=== PATIENT | male | born 1945 | race Caucasian/White ===

== ENCOUNTER → 2023-11-18 09:48 | Outpatient (REF) | payer MEDICARE, SELFPAY ==
[2023-11-18 12:29] LABS: % Basophils 0.6 % (0-2); % Eosinophils 3.8 % (0-6); % Immature Granulocytes 0.2 % (0-0.5); % Lymphocytes 19.5 % (20.5-51.1); % Monocytes 9.8 % (1.7-9.3); % Neutrophils 66.1 % (42.2-75.2); Absolute Basophils 0.1 10^3/uL (0-0.2); Absolute Eosinophils 0.3 10^3/uL (0-0.7); Absolute Lymphocytes 1.6 10^3/uL (1.2-3.4); Absolute Monocytes 0.8 10^3/uL (0.1-0.6); Absolute Neutrophils 5.4 10^3/uL (1.4-6.5); Hematocrit 44.2 % (39.0-52.0); Hemoglobin 14.7 g/dL (13.0-18.0); Mean Corp Hgb Conc. 33.3 g/dL (33.0-37.0); Mean Corpuscular Hgb 31.1 pg (27.0-31.0); Mean Corpuscular Volume 93.4 fL (80.0-94.0); Mean Platelet Volume 10.5 fL (7.4-10.4); Nucleated Red Blood Cells % 0 % (-); Platelet Count 221 10^3/uL (130-400); Red Blood Cell Count 4.73 10^6/uL (4.70-6.10); Red Cell Dist. Width 12.7 % (11.5-14.5); White Blood Cell Count 8.2 10^3/uL (4.8-10.8)
[2023-11-18 12:51] LABS: Blood Urea Nitrogen 14 mg/dl (9-20); Calcium 9.2 mg/dl (8.4-10.2); Carbon Dioxide 30 mmol/L (22-30); Chloride 97 mmol/L (98-107); Glucose 91 mg/dl (70-99); Potassium 4.1 mmol/L (3.5-5.1); Sodium 134 mmol/L (135-145); eGFR > 60.00
== END ==
LOC: HWLAB 09:48
PROVIDERS: ATTENDING PHYSICIAN Specialist; FAMILY PHYSICIAN Family Medicine
DX: Z01.818 Encounter for other preprocedural examination (principal)
CPT/HCPCS: 36415; 80048; 85025

== ENCOUNTER 2023-12-10 06:13 | Day surgery (SDC) | payer MEDICARE, SELFPAY ==
[2023-12-10] VITALS (9 sets, daily range): BP systolic 107–137; BP diastolic 57–83; BMI 43.5
[2023-12-10] MEDS: TYLENOL 1000 MG PO (08:15)
[2023-12-10] MEDS: CELEBREX 200 MG PO (08:15)
[2023-12-10] MEDS: NORMOSOL-R 1000 IV (08:16)
--- NOTE | 2023-12-10 10:57 | SUR.PHASEI ---
patient in pacu post op, history of OBEY and CPAP use. resting sats 89- 95% on room air. patient is comfortable able to bring sats up on own, Patient knows to wear CPAP with any rest periods at home. Dr Godoy updated, okay for discharge to [facility] and
agrees - patient to use CPAP at home with any rest periods.
== END 2023-12-10 11:24 | disposition home or self-care (01) ==
LOC: SDS 06:13
PROVIDERS: ATTENDING PHYSICIAN Specialist
DX: S83.242A Other tear of medial meniscus, current injury, left knee, initial encounter (principal); S83.282A Other tear of lateral meniscus, current injury, left knee, initial encounter; X58.XXXA Exposure to other specified factors, initial encounter
CPT/HCPCS: 29880

== ENCOUNTER → 2024-05-25 10:29 | Outpatient (REF) | payer MEDICARE, SELFPAY | LOC: HWRAD 10:29 | PROVIDERS: ATTENDING PHYSICIAN Internal Medicine Cardiovascular Disease; FAMILY PHYSICIAN Nurse Practitioner Family | DX: I77.810 Thoracic aortic ectasia (principal) | CPT/HCPCS: 71250 ==

== ENCOUNTER → 2025-05-15 12:44 | Outpatient (REF) | payer MEDICARE, SELFPAY | LOC: DHSLP 12:44 | PROVIDERS: ATTENDING PHYSICIAN Internal Medicine Critical Care Medicine; FAMILY PHYSICIAN Nurse Practitioner Family | DX: G47.33 Obstructive sleep apnea (adult) (pediatric) (principal); R06.83 Snoring | CPT/HCPCS: 95800 ==

== ENCOUNTER → 2025-06-11 14:00 | Outpatient (REF) | payer MEDICARE, SELFPAY | LOC: HWRAD 14:00 | PROVIDERS: ATTENDING PHYSICIAN Internal Medicine Cardiovascular Disease; FAMILY PHYSICIAN Nurse Practitioner Family | DX: I47.10 Supraventricular tachycardia, unspecified (principal); I77.810 Thoracic aortic ectasia; R91.8 Other nonspecific abnormal finding of lung field | CPT/HCPCS: 71250 ==